=== PATIENT | female | born 1995 | race Hispanic/Latino ===

== ENCOUNTER 2019-11-22 13:13 | Outpatient (CLI) | payer OTHER ==
--- NOTE | 2019-11-22 15:59 | RAD ---
LEFT HAND 3 VIEWS: INDICATION: History of crush injury to the left middle finger. COMPARISON: None. FINDINGS: There is a comminuted, minimally displaced fracture involving the distal tuft of the left long finger . No additional acute fracture is evident. No radiopaque foreign body is demonstrated. IMPRESSION: Minimally displaced distal tuft fracture of the left long finger. POS: CET
== END 2019-11-22 13:14 | disposition home or self-care (01) ==
LOC: BICRAD 13:13
PROVIDERS: ATTEND Family Medicine
DX: S67.10XA Crushing injury of unspecified finger(s), initial encounter (principal); S62.633A Displaced fracture of distal phalanx of left middle finger, initial encounter for closed fracture